=== PATIENT | male | born 1965 | race Hispanic/Latino ===

== ENCOUNTER 2021-05-16 06:05 | Day surgery (SDC) | payer MEDICAID ==
[2021-05-16 06:44] LABS: Basophils # (Auto) 0.1 K/mm3 (0.0-0.1); Basophils % (Auto) 1.2 % (0.0-1.8); Eosinophils # (Auto) 0.2 K/mm3 (0.0-0.4); Eosinophils % (Auto) 3.6 % (0.0-4.3); Hematocrit 47.6 % (35.5-45.6); Hemoglobin 16.5 gm/dl (11.8-15.2); Mean Corpuscular HGB Conc 35 % (32-34); Mean Corpuscular Volume 84 fl (84-94); Monocytes # (Auto) 0.6 K/mm3 (0.0-0.8); Monocytes % (Auto) 10.8 % (0.0-7.3); Platelet Count 202 K/mm3 (140-440); Red Blood Count 5.66 M/mm3 (3.65-5.03); Red Cell Distribution Width 13.7 % (13.2-15.2)
[2021-05-16 06:54] LABS: INR 0.9 (0.87-1.13)
[2021-05-16 06:55] LABS: Blood Urea Nitrogen 13 mg/dL (9-20); Hemolysis Index 7
[2021-05-16] MEDS ORDERED: SODIUM CHLORIDE 0.9% 500 ML 500 ML IV SCH (07:00)
[2021-05-16 07:01] LABS: BUN/Creatinine Ratio 19
[2021-05-16] MEDS ORDERED: MIDAZOLAM 2 MG/2 ML INJ ONE (07:24)
[2021-05-16] MEDS ORDERED: HEPARIN/NS 5000 UNIT/500ML 1,000 ML IR ONE (07:24)
[2021-05-16] MEDS ORDERED: HEPARIN 10,000 UNITS/10 ML VIAL ONE (07:24)
[2021-05-16] MEDS ORDERED: LIDOCAINE (2%) 20 MG/1 ML VIAL 20 ML MDV INFILTRATI ONE (07:25)
[2021-05-16] MEDS ORDERED: VERAPAMIL 5 MG/2 ML INJ ONE (07:25)
[2021-05-16] MEDS ORDERED: NITROGLYCERIN SYRINGE 3 ML ONE (07:27)
[2021-05-16] MEDS: fentaNYL 100 MCG/2 ML INJ ONE ×2 (07:53→07:59)
[2021-05-16] MEDS ORDERED: HYDROcodone/ACETAMINOPHEN 5-325 MG TAB PO PRN (09:00)
[2021-05-16] MEDS ORDERED: traMADol 50 MG TAB PO PRN (09:00)
[2021-05-16] MEDS ORDERED: oxyCODONE /ACETAMINOPHEN 5-325MG TAB PO ONE (10:47)
[2021-05-16] MEDS ORDERED: oxyCODONE /ACETAMINOPHEN 5-325MG TAB ONE (10:50)
[2021-05-16 11:55] VITALS: BP 136/83
--- NOTE | 2021-05-16 13:37 | Electrocardiograph Report ---
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
--- NOTE | 2021-05-21 09:50 | Cardiac Catherization Report ---
DATE OF PROCEDURE: 05/16/2021 PROCEDURE: Cardiac catheterization. INDICATION: Chest pain, suspicious for accelerating coronary angina. PROCEDURE DESCRIPTION: The patient was prepped in usual sterile fashion. Moderate sedation protocol was followed. The sedation began at 7:53 in the morning and ended at 8:07 a.m. Access was obtained to the right radial artery without complications. Standard catheters were used for the procedure. A TIG catheter was used to engage the left and right coronary. The catheter also crossed the aortic valve. There was no gradient across the aortic valve. The left ventricular wall motion was obtained by left ventriculography. HEMODYNAMICS: Aortic pressure 126/81. The left ventricular systolic pressure was 126. The end-diastolic pressure is 22. No gradient identified across the aortic valve. BLOOD LOSS: None. Left ventricular contractility normal. Ejection fraction is 50-55%. CORONARY ANATOMY: 1. Right dominant system. 2. Left main is calcified without any obstructive disease. It bifurcates into the left anterior descending and circumflex artery. 3. LAD: The LAD is a large vessel and is calcified in its proximal segment. It gives off a first diagonal that is calcified and has mild nonobstructive disease, less than 20%. There is a small septal deicer tester that has moderate disease of 60-70%. The remaining mid section and distal segments of the LAD appear to have no obstructive disease. 4. Circumflex: The circumflex is also a calcified vessel and gives off a large obtuse marginal branch. There is mild calcified disease of 20-30% in circumflex system. Again, no flow-limiting lesions seen in the circumflex system. 5. Right coronary artery: The right coronary artery is large and dominant. It is also calcified, particularly in its proximal segment. There is mild 20-30% disease. FINAL DIAGNOSES: 1. Nonobstructive calcified coronary vessels. The most significant amount is seen in the small vessel septal deicer tester, that is a branch of the proximal left anterior descending. 2. Normal left ventricular function with estimated ejection fraction of 50-55%. No gradient identified across the aortic valve. PLAN: Medical therapy for nonobstructive coronary disease recommended. This includes diet, exercise, and smoking cessation. Recommend routine followup to aggressively address the risk factors. TID: [id number] RECEIPT: [id number] GP/KDA/RIN MTDD
== END 2021-05-16 12:10 | disposition home or self-care (01) ==
LOC: CATHLABREC 06:05
PROVIDERS: ATTEND Internal Medicine Cardiovascular Disease
DX: R07.9 Chest pain, unspecified (principal); J44.9 Chronic obstructive pulmonary disease, unspecified; G47.30 Sleep apnea, unspecified; F32.9 Major depressive disorder, single episode, unspecified; F41.9 Anxiety disorder, unspecified; K21.9 Gastro-esophageal reflux disease without esophagitis; M06.9 Rheumatoid arthritis, unspecified; F17.210 Nicotine dependence, cigarettes, uncomplicated; Z79.82 Long term (current) use of aspirin; Z79.899 Other long term (current) drug therapy; Z98.890 Other specified postprocedural states
CPT/HCPCS: 36415; 80048; 85025; 85610; 85730; 93005; 93458; 99156; C1887; C1894; J1644; J2250; J3010; J7040; Q9967